=== PATIENT | male | born 1990 | race Caucasian/White ===

== ENCOUNTER → 2019-07-15 15:02 | Outpatient (BNVA) | payer OTHER, SELFPAY | PROVIDERS: PCP Nurse Practitioner; Visit Provider Nurse Practitioner Family | DX: M25.561 Pain in right knee (principal); M25.562 Pain in left knee | CPT/HCPCS: 73562 ==

== ENCOUNTER 2019-08-27 10:19 | Outpatient (CLI) | payer OTHER, SELFPAY ==
--- NOTE | 2019-08-27 09:30 | USCV_ITS ---
Cornelio Lopez Age: 29 Gender: M : 1990 Exam Date: 08/27/2019 10:17 Ordering Phys: Moustapha Alonso MD (Andy) ([email or web address]) Technologist: Constanza Smith Exam Location: [facility] Indication: HISTORY: Bilateral varicose veins. Rt worse than LT. PROCEDURES: The deep veins of both legs were studied. Neither had any evidence of DVT. The superficial system of Rt and Lt GSV and SSV were studied using reflux technique. All images were done with pt in dependent position. FINDINGS: The large tangle of varicos veins in the pt's thigh and below the knee draining into the mid GSV. The veins were found to be easily compressible CONCLUSIONS 1. No evidence of deep vein thrombosis in the above-mentioned identifiable veins. 2. Significant venous reflux of greater than 500 ms(3004 and 2069 ms) were noted at the proximal and mid segment of the right greater saphenous vein. The segments were at a depth of 2.22 and 2.75 cm from the surface. 3. No significant venous reflux noted on the left side. 4. Large varicose veins were noted bilaterally draining to the greater saphenous system, more on the right side. Could not visualize the entry point of the varicose veins, draining onto the greater saphenous vein. Dr Isaac Tay MD [facility] (Electronically Signed) Final Date: 27 August 2019 20:30 S
== END 2019-08-27 10:20 | disposition home or self-care (01) ==
LOC: RAD 10:22
PROVIDERS: PCP Nurse Practitioner; Visit Provider Thoracic Surgery (Cardiothoracic Vascular Surgery)
DX: I83.90 Asymptomatic varicose veins of unspecified lower extremity (principal)
CPT/HCPCS: 93970

== ENCOUNTER → 2019-09-06 15:20 | Outpatient (BNVA) | payer OTHER, SELFPAY | PROVIDERS: PCP Nurse Practitioner; Visit Provider Nurse Practitioner Family | DX: Z11.59 Encounter for screening for other viral diseases (principal) | CPT/HCPCS: 87635 ==

== ENCOUNTER → 2020-03-21 09:36 | Outpatient (BNVA) | payer OTHER, SELFPAY | PROVIDERS: PCP Nurse Practitioner Family; Visit Provider Nurse Practitioner Family | DX: Z20.828 Contact with and (suspected) exposure to other viral communicable diseases (principal) | CPT/HCPCS: 87635 ==

== ENCOUNTER → 2020-06-29 15:33 | Outpatient (BNVA) | payer OTHER, SELFPAY | PROVIDERS: PCP Nurse Practitioner Family; Visit Provider Nurse Practitioner Family | DX: M79.644 Pain in right finger(s) (principal) | CPT/HCPCS: 73140 ==

== ENCOUNTER 2020-10-31 08:26 | Emergency (ER) | payer OTHER, SELFPAY ==
[2020-10-31 08:34] VITALS: BP 130/80; PULSE 61; RESP 18; TEMP 36.6; O2SAT 98; BMI 38.1
--- NOTE | 2020-10-31 08:42 | W.ED.BACK ---
HPI - Back Pain/Injury General: Chief Complaint: Back Pain/Injury Stated Complaint: BACK PAIN Time Seen by Provider: 10/31/20 08:30 Source: patient Mode of arrival: ambulatory Limitations: no limitations History of Present Illness: HPI Narrative: Patient is a 30-year-old male who presents to ED today for evaluation of lower back pain. Patient states his lower back has been bothering him approximately 1 to 1.5 weeks. 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 He states sometimes pain will radiate into his bilateral buttocks but no radicular pain into his extremities. He is not complaining of numbness, tingling, loss of sensation to the extremities. He denies saddle anesthesia or urinary retention/bowel incontinence. Patient is still able to ambulate. He tells me he has a family history of degenerative disc disease. Patient states he has seen PCP for back pain and was prescribed ibuprofen and a Medrol Dosepak. He states he started the Medrol Dosepak this morning. MD elicited complaint: back pain Onset (ago): day(s) Timing: constant Similar Symptoms Previously: No Location: lumbar spine Radiation: buttocks Exacerbating factors: movement and lifting Relieving factors: none Context: while lifting Associated symptoms: Deny abdominal pain, chills, difficulty walking, dysuria, fatigue, fever(s), hematuria, nausea or vomiting Work related injury: No Review of Systems Const: Denies: fever(s), chills, body aches, fatigue or malaise Card: Denies: chest pain Resp: Denies: dyspnea GI: Denies: abdominal pain, nausea or vomiting : Denies: flank pain, dysuria or hematuria Musc: Reports: back pain; Denies: neck pain, extremity pain, extremity swelling, joint pain or joint swelling Neuro: Denies: numbness in extremities, weakness in extremities, sensory changes, difficulty walking, frequent falls or dizziness [facility] PFSH: Medical History Finger pain Knee pain, bilateral Tobacco dependence Family History Father Diabetes Social History Smoking and tobacco status: current every day smoker Second hand smoke exposure: No Smoking risk assessment/counseling performed?: No Alcohol intake: never Desire information about alcohol rehabilitation?: No Counseling given: No Current occupation: [email or web address] Physical Exam Const: COMMON NORMALS: no acute distress, patient oriented x3, no limitations and alert GENERAL APPEARANCE: cooperative NUTRITIONAL APPEARANCE: obese ORIENTATION/CONSCIOUSNESS: Yes awake, Yes oriented to person, Yes oriented to place and Yes oriented to time HENMT: COMMON NORMALS: normocephalic and atraumatic HEAD & SCALP: normocephalic and atraumatic : COMMON NORMALS: Yes no CVA tenderness BLADDER/KIDNEY EXAM: Yes no CVA tenderness Back/Pelvis: COMMON NORMALS: no CVA tenderness THORACIC SPINE/UPPER BACK: Yes normal to inspection, Yes thoracic ROM normal, No thoracic spinal tenderness, No paraspinal muscle tenderness and No paraspinal muscle spasm LUMBAR SPINE/LOWER BACK: Yes lumbar ROM normal, Yes lumbar spinal tenderness Lumbar spinal tenderness location: L3, L4 and L5, Yes paraspinal muscle tenderness (across lower back), No paraspinal muscle spasm, Yes straight leg raise positive right and Yes straight leg raise positive left PELVIS: Yes buttocks normal SACROILIAC JOINTS: Yes SI joint(s) abnormal (bilateral tenderness) Extremity: COMMON NORMALS: normal to inspection, full ROM, capillary refill normal, no clubbing, cyanosis or edema, no calf tenderness and no pedal edema Neuro: LUDY COMA SCALE: document GCS findings Tavares coma scale eye opening: Spontaneous Ludy coma scale verbal response: Orientated Ludy coma scale motor response: Obey commands Ludy coma scale total score: 15 COMMON NORMALS: patient oriented x3, CN's II-XII intact bilaterally, moves all extremities, no focal motor deficits, no sensory deficits noted and gait normal SENSORIUM/ORIENTATION: Yes alert, Yes oriented to person, Yes oriented to place and Yes oriented to time GAIT: Yes Normal gait present MOTOR EXAM: 5/5 motor strength present throughout Skin: COMMON NORMALS: no rashes or lesions noted GENERAL SKIN EXAM: no rashes or lesions noted Course Vital Signs: Vital signs: Vital Signs Temperature 98 F 10/31/20 08:34 Pulse Rate 64 10/31/20 08:55 Respiratory Rate 16 10/31/20 08:55 Blood Pressure 150/74 10/31/20 08:55 Pulse Oximetry 97 10/31/20 08:55 MDM - Back Pain/Injury MDM Narrative: Medical decision making narrative: Patient is a 30-year-old here for lower back pain over the past 1 to 2 weeks. Patient has no acute neurological deficits on clinical exam. XRs showing similar findings to films performed in 2019. He has L4 anterolisthesis with pars defects. Patient just started steroids today so recommend continue these. Also recommend continuing his anti-inflammatories. Will prescribe muscle relaxers. Is requesting referral to Dr. Gallegos to go over further options. I discussed how weight loss should be included in part of his treatment plan. Also discussed possibility for physical therapy. Patient is agreeable to all options. Imaging Data^: XR lumbar : Radiologist's impression: [address] [address] XRay Report Signed Patient: Cornelio Lopez Unit #: [id number] : 1990 Age/Sex: 30 / M ADM Date: 10/31/20 Loc: ER Room/Bed: Attending Dr: Ordering Provider/Ordering MD: Jessica Amaya Date of Service: 10/31/20 Procedure(s): XR lumbar spine 2-3V* 29875 Accession Number(s): [id number] Report Number: [id number] WS: [id number] XR lumbar spine 2-3V* [id number] REASON FOR EXAM: low back pain FINDINGS: Examination is unchanged compared to previous study of 02/23/2018. No significant vertebral compression deformity. Schmorl's node in the inferior endplate of L1, otherwise no focal vertebral abnormality. 5 to 6 mm of anterolisthesis of L3 in relation to L2 and 67 mm of anterolisthesis of L5 in relation to L4. Bilateral pars defects at L5. XR/XR lumbar spine 2-3V* [id number] IMPRESSION: Unchanged abnormal spine with spondylolisthesis and spondylolysis as above. Dictated By: Haile Rodriguez Jr, MD Signed By: Haile Rodriguez Jr, MD Signed Date/Time: 10/31/20928 DD/ 4 Discharge Plan Discharge Patient Disposition: Home Clinical Impression: Spondylolisthesis at L4-L5 level Low back pain Qualifiers: Chronicity: acute Back pain laterality: midline Sciatica presence: without sciatica Qualified Code(s): M54.5 - Low back pain Condition: Stable Prescriptions: New cyclobenzaprine 10 mg tablet 10 mg PO TID Qty: 14 RF: 0 Continued sertraline [Zoloft] 25 mg tablet 25 mg PO DAILY RF: 0 methylprednisolone [Medrol (Angelo)] 4 mg tablets,dose pack See Rx Instructions PO PER PKG DIR Qty: 21 RF: 0 ibuprofen 800 mg tablet 800 mg PO Q8H RF: 0 Discharge Orders: Discharge ED (Routine); Ordered 10/31/20 Ordered By: Jessica Amaya Referrals: Andrei Gallegos DO [Physician] - EVIE Rodriguez FNP [Primary Care Provider] - Patient Instructions: Acute Low Back Pain (ED), Back Pain (ED) Activity Restrictions/Additional Instructions: As you have requested I have sent your information to our case management team who will contact Dr. Gallegos/spine orthopedics to set you up with a follow-up appointment for further evaluation. Coding Level of Care Code ED Materials Planning Analyst for Chg Fwd Exam Detailed
--- NOTE | 2020-10-31 08:48 | XR_ITS ---
WS: [id number] XR lumbar spine 2-3V* [id number] REASON FOR EXAM: low back pain FINDINGS: Examination is unchanged compared to previous study of 02/23/2018. No significant vertebral compression deformity. Schmorl's node in the inferior endplate of L1, otherwise no focal vertebral abnormality. 5 to 6 mm of anterolisthesis of L3 in relation to L2 and 67 mm of anterolisthesis of L5 in relation t o L4. Bilateral pars defects at L5. XR/XR lumbar spine 2-3V* [id number] IMPRESSION: Unchanged abnormal spine with spondylolisthesis and spondylolysis as above.
[2020-10-31 08:55] VITALS: BP 150/74; PULSE 64; RESP 16; O2SAT 97
[2020-10-31 09:40] VITALS: BP 147/83; PULSE 70; RESP 16; O2SAT 95
--- NOTE | 2020-11-01 13:48 | DCPLANNER ---
credentialing manager had message to schedule a follow up appointment for patient with ortho. credentialing manager called ortho, spoke with [facility], gave clinic patients information. credentialing manager was told that patients information would be printed and reviewed. Clinic will call patient with appointment information.
--- NOTE | 2020-11-03 08:11 | DCPLANNER ---
Patient has a follow up appointment scheduled for Friday, November 07 at 2:[address] Gallegos at ortho. Clinic will call patient with appointment information.
--- NOTE | 2020-11-09 09:14 | DCPLANNER ---
Patient had a follow up appointment scheduled for 11.07.20 with ortho - patient did attend appointment.
== END 2020-10-31 09:42 | disposition home or self-care (01) ==
PROVIDERS: Emergency Provider Physician Assistant; PCP Nurse Practitioner Family
DX: M43.16 Spondylolisthesis, lumbar region (principal); F17.210 Nicotine dependence, cigarettes, uncomplicated
CPT/HCPCS: 72100; 99282